=== PATIENT | female | born 1965 | race Two or more races ===

== ENCOUNTER 2021-11-02 10:36 | Emergency (ER) | payer OTHER ==
[~2021-11-02] VITALS: Ht 160 cm; Wt 59.9 kg
== END 2021-11-02 15:44 | disposition home or self-care (01) ==
LOC: ER 10:36
DX: S39.93XA Unspecified injury of pelvis, initial encounter (principal); W19.XXXA Unspecified fall, initial encounter; Y93.9 Activity, unspecified; Y92.9 Unspecified place or not applicable